=== PATIENT | male | born 1960 | race Caucasian/White ===

== ENCOUNTER 2023-05-22 07:00 | Outpatient (NON) | payer MEDICARE, SELFPAY | END 2023-05-22 07:01 | disposition home or self-care (01) | PROVIDERS: PCP Nurse Practitioner Family; Visit Provider Internal Medicine Gastroenterology | DX: Z12.11 Encounter for screening for malignant neoplasm of colon (principal) | CPT/HCPCS: 88305 ==

== ENCOUNTER 2023-05-22 11:25 | Day surgery (SDC) | payer MEDICARE, SELFPAY ==
[2023-04-26 09:13] VITALS: BMI 30.7
[2023-05-03 13:57] VITALS: BMI 30.6
[2023-05-22 11:54] VITALS: BP 142/87; PULSE 90; RESP 20; TEMP 36.8; O2SAT 100; BMI 30.1
[2023-05-22] MEDS: LACTATED RINGERS 1,000 ML 150 ML IV CONT (12:04)
--- NOTE | 2023-05-22 12:11 | P.PNAN_ITS ---
Anes - Initial Pre Proc Eval Procedure: Operation Date: 05/22/23 12:00 Proposed Procedures p Screening Colonoscopy - Umer Rojas MD Date/Time: 05/22/23 12:11 Surgeon: Umer Rojas MD Pre Op Diagnosis: Screening Neoplasm of Colon Patient Data Age: 62 Gender: M Height: 1.75 m Weight: 92.5 kg Last Vital Signs Temp 36.8 C 05/22/23 11:54 Pulse 90 05/22/23 11:54 Resp 20 05/22/23 11:54 BP 142/87 H 05/22/23 11:54 Pulse Ox 100 05/22/23 11:54 O2 Del Method Room Air 05/22/23 11:54 Allergies Allergy/AdvReac Type Severity Reaction Status Date / Time erythromycin base Allergy Unknown Abdominal Verified 05/22/23 11:48 Pain Home Medications Medication Instructions Recorded Confirmed Type gabapentin 300 mg capsule 300 mg PO HS 05/03/23 05/22/23 History tramadol 200 mg tablet,extended 200 mg PO DAILY 05/03/23 05/22/23 History release 24 hr Patient hx anesthesia problems: none Family hx anesthesia problems: none Results Review: All pre-operative results and documents have been reviewed as part of the pre- operative evaluation. [facility] Family History Family History Father Family history of obesity Hypertension Family history of diabetes mellitus in first degree relative Family history of sleep apnea Mother Cerebrovascular accident Other Family history of chronic obstructive pulmonary disease Social History Social History Smoking packs per day: 1 Smoking cigarettes per day: 20.0 Years smoked: 20 Smoking pack-years: 20.00 Smoking status: Former smoker Tobacco type: cigarettes Alcohol intake: current Drinks per week: 12 Substance use: never Substance use type: does not use Living arrangements: alone Spiritual care concerns: No Anes - Eval Final PreProcedure Day of Procedure 05/22/23 12:11 Patient weight: obese Heart: regular rate and rhythm Lungs: decreased breath sounds Airway: Mallampati scale class II Neurological: alert and oriented Last oral intake: >/= 8 hours ASA classification: III Emergent: no Anesthetic plan: proceed Anesthesia type and monitoring: general GIVS and standard monitoring Results Review: All pre-operative results and documents have been reviewed as part of the pre- operative evaluation. Informed Consent: The patient's anesthetic plan and its attendant risks and benefits were discussed with the patient/family/POA. Questions were solicited and answers provided to the satisfaction of the patient/family/POA.
--- NOTE | 2023-05-22 12:16 | PM.HPGS ---
History of Present Illness History of Present Illness Consent: Risks, benefits, and alternatives have been discussed and questions answered. Patient agrees to proceed with procedure. Chief complaint: Screening Neoplasm of Colon Narrative: Satya Prater is a 62 year old male presents for screening colonoscopy. Patient's current weight appetite and bowel movements are normal. Patient denies abdominal pain. He has had no bleeding. Family history noncontributory. Previous colonoscopy 10 years ago was unremarkable. Review of Systems Review of Systems: Review of systems is noncontributory. [facility] Family History Family History Father Family history of obesity Hypertension Family history of diabetes mellitus in first degree relative Family history of sleep apnea Mother Cerebrovascular accident Other Family history of chronic obstructive pulmonary disease Social History Social History Smoking packs per day: 1 Smoking cigarettes per day: 20.0 Years smoked: 20 Smoking pack-years: 20.00 Smoking status: Former smoker Tobacco type: cigarettes Alcohol intake: current Drinks per week: 12 Substance use: never Substance use type: does not use Living arrangements: alone Spiritual care concerns: No Meds Home Medications and Allergies Home Medications Medication Instructions Recorded Confirmed Type gabapentin 300 mg capsule 300 mg PO HS 05/03/23 05/22/23 History tramadol 200 mg tablet,extended 200 mg PO DAILY 05/03/23 05/22/23 History release 24 hr Allergies Allergy/AdvReac Type Severity Reaction Status Date / Time erythromycin base Allergy Unknown Abdominal Verified 05/22/23 11:48 Pain Vital Signs Vital Signs - 24 hr 05/22/23 11:54 Temperature 98.3 F Pulse Rate 90 Respiratory Rate 20 Blood Pressure 142/87 H Pulse Oximetry 100 Oxygen Delivery Room Air Exam Narrative: Physical exam reveals patient to be alert. Vital signs stable. HEENT exam is unremarkable. Patient is anicteric. Lungs are clear to auscultation and tube is without murmur or extra sounds. Abdomen is are present soft nontender with no organomegaly. Digital external rectal exam is normal. Assessment and Plan Assessment and plan (1) Encounter for screening colonoscopy: Code(s): Z12.11 - Encounter for screening for malignant neoplasm of colon Status: Acute Assessment and Plan: Patient presents today for screening colonoscopy.
[2023-05-22 12:47] VITALS: BP 137/75; PULSE 72; RESP 18; O2SAT 95
[2023-05-22 12:57] VITALS: BP 133/84; PULSE 72; RESP 18; O2SAT 100
[2023-05-22 13:07] VITALS: BP 123/78; PULSE 70; RESP 16; O2SAT 100
--- NOTE | 2023-05-22 13:25 | WPDANESPN ---
Anes - Prog Note Post-Op Date/Time: 05/22/23 13:25 Cardiovascular status: normal Respiratory status: normal Airway patency: baseline Mental status: baseline Post-Op hydration status: normal Vital Signs: Last Vital Signs Temp 36.8 C 05/22/23 11:54 Pulse 70 05/22/23 13:07 Resp 16 05/22/23 13:07 BP 123/78 05/22/23 13:07 Pulse Ox 100 05/22/23 13:07 O2 Del Method Room Air 05/22/23 13:07 Pain Score (VAS): 0 I/O: Intake & Output 05/21/23 05/22/23 05/22/23 23:59 07:59 15:59 Intake Total 350 Balance 350 Patient Feedback: Patient satisfied with anesthetic care.
== END 2023-05-22 13:18 | disposition home or self-care (01) ==
PROVIDERS: PCP Nurse Practitioner Family; Visit Provider Internal Medicine Gastroenterology
PROC: 0DJD8ZZ Inspection of Lower Intestinal Tract, Via Natural or Artificial Opening Endoscopic (ICD-10-PCS; CPT 45378; principal; 2023-05-22 12:00)
DX: Z12.11 Encounter for screening for malignant neoplasm of colon (principal); D12.5 Benign neoplasm of sigmoid colon; K64.8 Other hemorrhoids
CPT/HCPCS: 45385